=== PATIENT | male | born 2000 | race Two or more races ===

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

== ENCOUNTER 2024-08-30 20:33 | Emergency (ER) | payer MEDICAID, OTHER ==
[~2024-08-30] VITALS: Ht 177.8 cm; Wt 95.3 kg
[2024-08-30 20:59] VITALS: BP 151/78; TEMP 98; O2SAT 99
[2024-09-01 06:08] LABS: RAPID PLASMA REAGIN QUAL. Non Reactive (Non Reactive)
[2024-09-02 06:06] LABS: CHLAMYDIA TRACHOMATIS NAA Negative (Negative); NEISSERIA GONORRHOEAE NAA Negative (Negative)
[2024-09-02 19:08] LABS: *HIV-1 RNA BY PCR <20 copies/mL (.)
== END 2024-08-30 21:30 | disposition home or self-care (01) ==
LOC: ER 20:52
DX: Z20.2 Contact with and (suspected) exposure to infections with a predominantly sexual mode of transmission (principal)
CPT/HCPCS: 36415; 86592; 86593; 87491; 87536; 87591

== ENCOUNTER 2024-10-07 15:55 | Inpatient (IN) | payer MEDICAID ==
[~2024-10-07] VITALS: Ht 177.8 cm; Wt 90.7 kg
[2024-10-07 16:55] LABS: CARBON DIOXIDE 29 mmol/L (21-32); CHLORIDE 103 mmol/L (98-107); CREATININE 1.1 mg/dL (0.6-1.3); GLUCOSE 148 mg/dL (74-106); SODIUM SERUM 140 mmol/L (136-145); UREA NITROGEN, BLOOD 12 mg/dL (7-18)
[2024-10-07 17:04] LABS: ALANINE AMINOTRANSFERASE 26 U/L (12-78); ALBUMIN 4.4 g/dL (3.4-5.0); ALKALINE PHOSPHATASE 92 U/L (46-116); ASPARTATE AMINOTRANSFERASE 23 U/L (15-37); BILIRUBIN,DIRECT 0.1 mg/dL (0.0-0.2); BILIRUBIN,TOTAL 0.3 mg/dL (0.2-1.0)
[2024-10-07 17:16] LABS: BASOPHILS % (AUTO) 0.5 % (0.0-2.0); EOSINOPHILS # (AUTO) 0.3 K/uL (0.0-0.7); EOSINOPHILS % (AUTO) 3.7 % (0.0-6.0); HEMATOCRIT 47 % (39-51); HEMOGLOBIN 15.8 g/dL (13.5-17.5); LYMPHOCYTES # (AUTO) 2.2 K/uL (0.8-4.8); LYMPHOCYTES % (AUTO) 28.6 % (20.0-44.0); MEAN CORPUSCULAR HEMOGLOBIN 29 PG (26.0-33.0); MEAN CORPUSCULAR HGB CONC 34 g/dl (31.0-36.0); MEAN CORPUSCULAR VOLUME 86 fL (80-96); MONOCYTES # (AUTO) 0.5 K/uL (0.1-1.30); MONOCYTES % (AUTO) 6.8 % (2.0-12.0); NEUTROPHILS # (AUTO) 4.7 K/uL (1.8-8.9); NEUTROPHILS % (AUTO) 60.4 % (43.0-81.0); PLATELET COUNT (AUTO) 231 K/uL (150-450); RED BLOOD CELL COUNT(AUTO) 5.43 MIL/uL (4.5-6.0); RED CELL DISTRIBUTION WIDTH 13.3 % (11.5-15.0); WHITE BLOOD COUNT (AUTO) 7.9 K/uL (4.3-11.0)
[2024-10-07] MEDS ORDERED: MAG HYDROX/AL HYDROX/SIMETH 30 ML UDC PO PRN (22:30)
[2024-10-07] MEDS ORDERED: MAGNESIUM HYDROXIDE 30 ML UDC PO PRN (22:30)
[2024-10-07] MEDS ORDERED: Z GUARD REMEDY 4 OZ OINT TP PRN (22:30)
[2024-10-07] MEDS ORDERED: ONDANSETRON HCL/PF 4 MG/2 ML VIAL IVP PRN (22:30)
[2024-10-07] MEDS ORDERED: IPRATROPIUM NEB FS 0.5 MG/2.5 ML AMPUL.NEB NEB PRN (22:30)
[2024-10-07] MEDS ORDERED: ZOLPIDEM TARTRATE 5 MG TABLET PO PRN (22:30)
[2024-10-07] MEDS ORDERED: ALBUTEROL FS 2.5 MG/3 ML VIAL.NEB CONTNEB PRN (22:30)
[2024-10-08 00:30] VITALS: BP 135/76; TEMP 98.6; O2SAT 100
[2024-10-08 02:35] VITALS: BP 135/76; TEMP 98.6; O2SAT 98
[2024-10-08 05:00] VITALS: BP 125/62; TEMP 98.8; O2SAT 97
[2024-10-08 06:12] LABS: BASOPHILS % (AUTO) 0.3 % (0.0-2.0); EOSINOPHILS # (AUTO) 0.1 K/uL (0.0-0.7); EOSINOPHILS % (AUTO) 1.6 % (0.0-6.0); HEMATOCRIT 44 % (39-51); HEMOGLOBIN 14.9 g/dL (13.5-17.5); LYMPHOCYTES # (AUTO) 1.5 K/uL (0.8-4.8); LYMPHOCYTES % (AUTO) 21.6 % (20.0-44.0); MEAN CORPUSCULAR HEMOGLOBIN 29 PG (26.0-33.0); MEAN CORPUSCULAR HGB CONC 34 g/dl (31.0-36.0); MEAN CORPUSCULAR VOLUME 86 fL (80-96); MONOCYTES # (AUTO) 0.7 K/uL (0.1-1.30); MONOCYTES % (AUTO) 10.1 % (2.0-12.0); NEUTROPHILS # (AUTO) 4.5 K/uL (1.8-8.9); NEUTROPHILS % (AUTO) 66.4 % (43.0-81.0); PLATELET COUNT (AUTO) 210 K/uL (150-450); RED BLOOD CELL COUNT(AUTO) 5.18 MIL/uL (4.5-6.0); RED CELL DISTRIBUTION WIDTH 13.6 % (11.5-15.0); WHITE BLOOD COUNT (AUTO) 6.8 K/uL (4.3-11.0)
[2024-10-08 06:39] LABS: THYROID STIMULATING HORMONE 2.4 uIU/mL (0.358-3.74)
[2024-10-08 06:49] LABS: CALCIUM, SERUM 8.9 mg/dL (8.5-10.1); CREATININE 0.9 mg/dL (0.6-1.3); MAGNESIUM 2.1 mg/dL (1.8-2.4); PHOSPHORUS 4.8 mg/dL (2.5-4.9); POTASSIUM 4.1 mmol/L (3.5-5.1)
[2024-10-08] MEDS: PANTOPRAZOLE 40 MG TABLET.DR PO SCH (08:43)
[2024-10-08 08:49] VITALS: BP 129/72; TEMP 98.4; O2SAT 98
[2024-10-08] MEDS: LIDOCAINE 1% INJ 50 ML MDV IJ ONE (10:18)
[2024-10-08] MEDS: ACETAMINOPHEN 325 MG TABLET PO PRN (12:04)
[2024-10-08 16:04] VITALS: BP 123/71; TEMP 98.8; O2SAT 99
[2024-10-08 20:00] VITALS: BP 128/64; TEMP 98.8; O2SAT 100
[2024-10-09] VITALS: BP 126/71; TEMP 98.4; O2SAT 100
[2024-10-09 04:00] VITALS: BP 116/75; TEMP 97.9; O2SAT 100
[2024-10-09 08:00] VITALS: BP 125/72; TEMP 98.1; O2SAT 97
[2024-10-09 20:00] VITALS: BP 134/82; TEMP 97.9; O2SAT 100
[2024-10-10 06:33] LABS: BASOPHILS % (AUTO) 0.5 % (0.0-2.0); EOSINOPHILS # (AUTO) 0.3 K/uL (0.0-0.7); EOSINOPHILS % (AUTO) 5.2 % (0.0-6.0); HEMATOCRIT 45 % (39-51); HEMOGLOBIN 15.1 g/dL (13.5-17.5); LYMPHOCYTES # (AUTO) 1.6 K/uL (0.8-4.8); LYMPHOCYTES % (AUTO) 27.8 % (20.0-44.0); MEAN CORPUSCULAR HEMOGLOBIN 29 PG (26.0-33.0); MEAN CORPUSCULAR HGB CONC 34 g/dl (31.0-36.0); MEAN CORPUSCULAR VOLUME 86 fL (80-96); MONOCYTES # (AUTO) 0.5 K/uL (0.1-1.30); MONOCYTES % (AUTO) 9.4 % (2.0-12.0); NEUTROPHILS # (AUTO) 3.3 K/uL (1.8-8.9); NEUTROPHILS % (AUTO) 57.1 % (43.0-81.0); PLATELET COUNT (AUTO) 211 K/uL (150-450); RED CELL DISTRIBUTION WIDTH 13.1 % (11.5-15.0); WHITE BLOOD COUNT (AUTO) 5.7 K/uL (4.3-11.0)
[2024-10-10 06:56] LABS: CALCIUM, SERUM 9.2 mg/dL (8.5-10.1); CREATININE 1.2 mg/dL (0.6-1.3); POTASSIUM 4.1 mmol/L (3.5-5.1)
[2024-10-10 08:00] VITALS: BP 108/72; TEMP 98.2; O2SAT 96
[2024-10-10 16:00] VITALS: BP 131/68; TEMP 98.4; O2SAT 97
[2024-10-10 20:00] VITALS: BP 121/69; TEMP 97.9; O2SAT 97
[2024-10-11 07:00] VITALS: BP 128/69; TEMP 98.1; O2SAT 100
[2024-10-11 16:00] VITALS: BP 121/70; TEMP 98.1; O2SAT 97
[2024-10-11 20:00] VITALS: BP 133/76; TEMP 98.2; O2SAT 97; O2SAT 99
[2024-10-12 07:30] VITALS: BP 116/67; TEMP 98.2; O2SAT 100
[2024-10-12 08:00] VITALS: BP 116/67; TEMP 98.2; O2SAT 100
[2024-10-12 15:30] VITALS: BP 106/63; TEMP 98.1; O2SAT 98
[2024-10-12 16:00] VITALS: BP 106/63; TEMP 98.1; O2SAT 98
[2024-10-12 20:00] VITALS: BP 130/69; TEMP 98.2; O2SAT 95
[2024-10-13 08:00] VITALS: BP 123/77; TEMP 98.2; O2SAT 96
[2024-10-13 16:00] VITALS: BP 136/74; TEMP 98.2; O2SAT 99
[2024-10-13 20:00] VITALS: BP 129/82; TEMP 98.2; O2SAT 99
[2024-10-14 08:20] VITALS: BP 123/64; TEMP 98.1; O2SAT 99
[2024-10-14 16:08] VITALS: BP 112/78; TEMP 98.6; O2SAT 99
== END 2024-10-14 18:30 | disposition still patient (30) | DRG 143 ==
LOC: ER 15:55 → TELE 23:42 → MED 10-09 10:26
PROVIDERS: ADMIT Student in an Organized Health Care Education/Training Program; ATTEND Internal Medicine
PROC: 0W9930Z Drainage of Right Pleural Cavity with Drainage Device, Percutaneous Approach (ICD-10-PCS; principal; 2024-10-08)
DX: J93.83 Other pneumothorax (principal); F12.90 Cannabis use, unspecified, uncomplicated; J45.909 Unspecified asthma, uncomplicated; Z72.0 Tobacco use
CPT/HCPCS: 36415; 71045-TC; 71250-TC; 80048-TC; 80076-TC; 83735-TC; 84100-TC; 84443-TC; 84484-TC; 85025-TC; 85378-TC; 93307-TC; G0378; J3490